=== PATIENT | female | born 1955 | race Caucasian/White ===

== ENCOUNTER 2016-12-28 12:39 | Emergency (ER) | payer BC, OTHER ==
[2016-12-28 13:30] VITALS: BP 112/66
--- NOTE | 2016-12-28 14:17 | UC ---
[facility] HPI - HPI Summary HPI Summary: THREE DAYS OF PAIN IN LEFT LOWER JAW, CONCERN FOR ABSCESS. HISTORY OF ABSCESS IN PAST HAS NOT BEEN TO DENTIST DUE TO CONCERNS FOR COST. - History of Current Complaint Chief Complaint: UCDentalProblem Stated Complaint: DENTAL PAIN Time Seen by Provider: 12/28/16 13:39 Hx Obtained From: Patient ?: No Onset/Duration: Gradual Onset, Lasting Days, Still Present Severity: Moderate Pain Intensity: 0 Pain Scale Used: 0-10 Numeric Aggravating: Chewing Alleviating: Topical Meds - Allergies/Home Medications Allergies/Adverse Reactions: Allergies Allergy/AdvReac Type Severity Reaction Status Date / Time Penicillins Allergy Unknown See Comment Verified 12/28/16 13:23 Home Medications: Home Medications Ibuprofen TAB* [Advil TAB*] 400 mg PO Q6H PRN 12/28/16 [History Confirmed ] PMH/Surg Hx/FS Hx/Imm Hx Previously Healthy: Yes - Surgical History Surgical History: Yes Surgery Procedure, Year, and Place: Partial Hysterectomy, 1995, [place] - Family History Known Family History: Positive: Respiratory Disease - Social History Occupation: Employed Full-time Alcohol Use: Rare Substance Use Type: None Smoking Status (MU): Heavy Every Day Tobacco Smoker Type: Cigarettes Amount Used/How Often: 3/4 PPD Length of Time of Smoking/Using Tobacco: Since Age 15 Have You Smoked in the Last Year: Yes Household Exposure Type: Cigarettes Cessation Counseling: Counseled 3+Min - 10 Min - Immunization History Most Recent Influenza Vaccination: May 2016 Review of Systems Constitutional: Negative Skin: Negative Eyes: Negative ENT: Dental Pain Respiratory: Negative Cardiovascular: Negative Gastrointestinal: Negative Genitourinary: Negative Motor: Negative Neurovascular: Negative Musculoskeletal: Negative Neurological: Negative Psychological: Negative All Other Systems Reviewed And Are Negative: Yes Physical Exam Triage Information Reviewed: Yes Appearance: Well-Appearing, Well-Nourished, Pain Distress - MILD Vital Signs: Initial Vital Signs Temp 98.3 F 12/28/16 13:22 Pulse 80 12/28/16 13:22 Resp 16 12/28/16 13:22 BP 112/66 12/28/16 13:22 Pulse Ox 98 12/28/16 13:22 Eye Exam: Normal ENT: Positive: Hearing grossly normal, Pharynx normal, TMs normal Dental: Positive: Percussion Tenderness @ - 22,23,24, Gross Decay/Caries @, Cellulitis @ - 22,23,24 Neck exam: Normal Neck: Positive: Supple, Nontender, No Lymphadenopathy Respiratory: Positive: Chest non-tender, No respiratory distress, No accessory muscle use, Wheezing Cardiovascular Exam: Normal Cardiovascular: Positive: RRR, No Murmur, Pulses Normal Abdominal Exam: Normal Abdomen Description: Positive: Nontender, No Organomegaly Musculoskeletal Exam: Normal Neurological Exam: Normal Psychological Exam: Normal Skin Exam: Normal Dental Complaint Course/Dx - Differential Dx/Diagnosis Differential Diagnosis/Dx: Dental Abscess, Odontogenic Pain Provider Diagnoses: ODONTOGENIC PAIN # 22,23,24. GINGIVAL CELLULITIS #22,23, 24. TOBACCO ABUSE Discharge - Discharge Plan Condition: Stable Disposition: HOME Prescriptions: Clindamycin Cap(NF) [Cleocin 300 mg Cap(NF)] 300 mg PO TID #21 cap Patient Education Materials: Dental Abscess (ED), Toothache (ED) Referrals: VERA Tan [Primary Care Provider] - [facility]: 1 - TENDER HERE
== END 2016-12-28 14:10 | disposition home or self-care (01) ==
LOC: UCCORT 12:39
DX: K12.2 Cellulitis and abscess of mouth (principal); Z88.0 Allergy status to penicillin; F17.210 Nicotine dependence, cigarettes, uncomplicated; Z71.6 Tobacco abuse counseling
CPT/HCPCS: 99212; G0463

== ENCOUNTER 2019-06-13 12:59 | Emergency (ER) | payer BC ==
[2019-06-13 14:20] VITALS: BP 123/83
--- NOTE | 2019-06-13 14:25 | UC ---
Respiratory Complaint HPI - HPI Summary HPI Summary: 4 days of cough and fatigue in a smoker. she has not used albuterol. would like to know if she has pneumonia. pt states while at work 2 days ago she carried a very heavy bag for a distance. pt states she believes that her hands went purple and it felt like her bilat upper arms were sore. pt states she slept much longer than normal for the past few days. - History of Current Complaint Chief Complaint: UCRespiratory Stated Complaint: COUGH,FATIGUE Time Seen by Provider: 06/13/19 14:15 Hx Obtained From: Patient Pain Intensity: 5 - Allergies/Home Medications Allergies/Adverse Reactions: Allergies Allergy/AdvReac Type Severity Reaction Status Date / Time Penicillins Allergy Unknown Verified 06/13/19 14:20 Reaction Details PMH/Surg Hx/FS Hx/Imm Hx - Additional Past Medical History Additional PMH: hx of breast ca Previously Healthy: Yes - Surgical History Surgical History: Yes Surgery Procedure, Year, and Place: Partial Hysterectomy, 1995, - Family History Known Family History: Positive: Respiratory Disease - Social History Alcohol Use: Rare Substance Use Type: None Smoking Status (MU): Heavy Every Day Tobacco Smoker Type: Cigarettes Amount Used/How Often: 3/4 PPD Length of Time of Smoking/Using Tobacco: Since Age 15 Have You Smoked in the Last Year: Yes Household Exposure Type: Cigarettes - Immunization History Most Recent Influenza Vaccination: May 2016 Review of Systems All Other Systems Reviewed And Are Negative: Yes Constitutional: Positive: Fatigue. Negative: Fever, Chills Skin: Negative: Rash Eyes: Negative: Drainage ENT: Negative: Sore Throat, Ear Ache, Sinus Congestion Respiratory: Positive: Cough - productive. Negative: Shortness Of Breath Cardiovascular: Negative: Palpitations, Chest Pain Gastrointestinal: Negative: Nausea Motor: Negative: Decreased ROM, Weakness Musculoskeletal: Positive: Other: - bilat arm soreness, with 'purple' hands that lasted a few min.. Negative: Arthralgia, Edema, Myalgia Neurological: Negative: Headache Physical Exam Triage Information Reviewed: Yes Appearance: Well-Appearing Vital Signs: Initial Vital Signs Temp 97.6 F 06/13/19 14:15 Pulse 98 06/13/19 14:15 Resp 18 06/13/19 14:15 BP 123/83 06/13/19 14:15 Pulse Ox 96 06/13/19 14:15 Vital Signs Reviewed: Yes Eyes: Positive: Conjunctiva Clear ENT: Positive: Pharynx normal, TMs normal Neck: Positive: Supple, Nontender, No Lymphadenopathy Respiratory: Positive: No respiratory distress, No accessory muscle use, Crackles - R>L, Wheezing Cardiovascular Exam: Normal Neurological: Positive: Alert Skin: Negative: Rashes Respiratory Course/Dx - Course Course Of Treatment: Abnormal lungs sounds w/ cough in a smoker assoc. w/ fatigue, acute. Will tx w/ antibx to cover bacterial source. advised to discuss possibility of copd dx w/ her pcp as she has smoked for over 20yrs. It is unclear what her arm/hand issue is as she does not have this issue during visit. I explained it may have been the heavy bags but to see pcp for further work up/ eval. - Differential Dx/Diagnosis Differential Diagnosis/HQI/PQRI: Asthma, Bronchitis, Lower Resp Infection, Other Provider Diagnosis: Cough Discharge ED - Sign-Out/Discharge Documenting (check all that apply): Patient Departure All imaging exams completed and their final reports reviewed: No Studies - Discharge Plan Condition: Good Disposition: HOME Prescriptions: Azithromycin TAB* [Zithromax TAB (Z-CONSTANCE) 250 mg #6 tabs] 2 tab PO .TODAY, THEN 1 DAILY #1 constance Patient Education Materials: Shortness of Breath (ED) Referrals: Devonte Velasquez PA [Primary Care Provider] - Additional Instructions: Taking your medication as prescribed is essential. - Billing Disposition and Condition Condition: GOOD Disposition: Home
== END 2019-06-13 14:55 | disposition home or self-care (01) ==
LOC: UCCORT 12:59
DX: R05 Cough (principal); R53.83 Other fatigue; R29.898 Other symptoms and signs involving the musculoskeletal system; F17.210 Nicotine dependence, cigarettes, uncomplicated; Z88.0 Allergy status to penicillin; Z85.3 Personal history of malignant neoplasm of breast
CPT/HCPCS: 99212; G0463